=== PATIENT | male | born 1995 | race Caucasian/White ===

== ENCOUNTER 2016-05-04 21:19 | Emergency (ER) | payer SELFPAY ==
[~2016-05-04] VITALS: Ht 172.7 cm; Wt 148.0 kg
[~2016-05-04 21:19] MED LIST: CEPH-443 PO; HYDR-3498 PO
[2016-05-04 22:26] VITALS: Ht 172.7 cm; Wt 148.0 kg
[2016-05-05] MEDS ORDERED: CEPH-443 PO (09:38)
[2016-05-05] MEDS ORDERED: BACTDS PO (09:38)
[2016-05-05] MEDS ORDERED: ACET325T33 PO (09:38)
== END 2016-05-05 01:52 | disposition left against medical advice (07) ==
LOC: FTE 21:19
DX: Z53.21 Procedure and treatment not carried out due to patient leaving prior to being seen by health care provider (principal)

== ENCOUNTER 2016-05-05 08:52 | Emergency (ER) | payer BC ==
[~2016-05-05] VITALS: Wt 105.0 kg
[2016-05-05] MEDS ORDERED: CEPHALEXIN 500 MG CAP PO ONE (09:30)
[2016-05-05] MEDS ORDERED: TRIMETHOPRIM/SULFAMETHOX (DS) TAB PO ONE (09:30)
[2016-05-05] MEDS ORDERED: DIPHTH/TET/ACEL PERTUSS (ADULT) 0.5 ML VIAL IM* ONE (09:30)
[2016-05-05] MEDS ORDERED: LIDOCAINE 1% (MDV) 20 ML INJ SC ONE (09:30)
[2016-05-05] MEDS ORDERED: BACTDS PO (09:38)
[2016-05-05] MEDS ORDERED: ACET325T33 PO (09:38)
[2016-05-05] MEDS ORDERED: CEPH-443 PO (09:38)
--- NOTE | 2016-05-05 10:14 | ERD ---
ER Documentation Chief Complaint Date/Time DATE: 05/05/16 TIME: 10:11 Chief Complaint bialteral great toe wound and infection for the past few months HPI This is a 21-year-old male presenting to the emergency department complaining of bilateral great toe pain 10/08 for the past 3 months. Patient states that he has had numerous times it is going toenails and have been removed. He has not taken any medications for this. Denies any fevers ROS All systems reviewed and are negative except as per history of present illness. Medications Home Meds Active Scripts Acetaminophen* (Tylenol*) 325 Mg Tablet, 2 TAB PO Q6 Y for PAIN AND OR ELEVATED TEMP, #20 TAB Prov:MILY LE-C 05/05/16 Sulfamethoxazole-Trimethoprim* (Bactrim* DS) 800-160 Mg Tab, 1 TAB PO BID for 10 Days, TAB Prov:MILY LE-C 05/05/16 Cephalexin* (Keflex*) 500 Mg Capsule, 500 MG PO QID for 10 Days, CAP Prov:MILY LE-C 05/05/16 Hydrocodone Bit-Acetaminophen* (Corry*) 5-325 Mg Tab, 1 TAB PO Q6 Y for PAIN, # 7 TAB Prov:GALINA ROBERTS 05/27/15 Cephalexin* (Keflex*) 500 Mg Capsule, 500 MG PO QID for 5 Days, CAP Prov:GALINA ROBERTS 05/27/15 Allergies Allergies: Coded Allergies: No Known Allergy (Unverified , 05/27/15) PMhx/Soc History of Surgery: No Anesthesia Reaction: No Hx Neurological Disorder: No Hx Respiratory Disorders: No Hx Cardiac Disorders: No Hx Psychiatric Problems: No Hx Miscellaneous Medical Probl: No Hx Alcohol Use: No Hx Substance Use: No Hx Tobacco Use: No Physical Exam Vitals Vital Signs Date Time Temp Pulse Resp B/P Pulse Ox O2 Delivery O2 Flow Rate FiO2 05/05/16 08:57 98.7 87 21 140/80 98 Physical Exam General: WD/WN, in no apparent distress, non-toxic appearing HENT: NC/AT Eyes: Conjunctiva normal Neck: Supple Pulm: Clear to auscultation, normal labored breathing; no wheezing/rales/ rhonchi heard CV: Good capillary refill GI: Non-distended, no guarding Back: No masses Ext: No clubbing, cyanosis, or edema Neuro: Moves on all fours Skin: Bilateral medial and lateral ingrown toenails with erythema and evidence of paronychia Normal turgor, color, and temperature. No ulcerations or rashes noted. Psych: Normal mood Results 24 hrs Current Medications Medications (Trade) Dose Ordered Sig/Marquita Route PRN Reason Start Time Stop Time Status Last Admin Dose Admin Lidocaine (Xylocaine 1% (Mdv) 20 ml) 20 ml ONCE ONCE SC 05/05/16 09:30 3 09:31 DC Diphtheria/ Tetanus/Acell Pertussis (Adacel) 0.5 ml ONCE ONCE IM* 05/05/16 09:30 05/05/16 09:31 DC 05/05/16 09:23 Cephalexin (Keflex) 500 mg ONCE ONCE PO 05/05/16 09:30 05/05/16 09:31 DC 05/05/16 09:22 Trimethoprim/ Sulfamethoxazole (Bactrim (Ds)) 1 tab ONCE ONCE PO 05/05/16 09:30 05/05/16 09:31 DC 05/05/16 09:22 Procedures/MDM This is a 21-year-old male presenting to the emergency department with bilateral infected ingrown toenails which would need to be removed. I will low suspicion for osteomyelitis or bacteremia. In the ED patient received tetanus shot. He was prepared for nail removal. Prescription for Keflex and Bactrim was provided. His first dose was taken in the ED. PROCEDURE NOTE: consent was obtained. Region was cleansed with povidone-iodine solution. A standard digital block was preformed using approximately 6cc of lidocaine without epinephrine. A wait for 10 minutes was allowed for anesthetic to become effective. The region was cleansed again with povidone-iodine solution. A nail elevator was slid under the cuticle to separate the nail plate from the overlying proximal nail fold. The entire nail plate bilaterally was cut free using bandage scissors and gently pulled free with a hemostat. Xeroform gauze was then applied followed by bulky dry gauze dressing. The patient tolerated the procedure well without complications. Standard post- procedure care is explained and return precautions are given. DISPOSITION: hemodynamically stable and neurovascularly intact pre & post treatment. Prescriptions flexed Bactrim have been given. Instructions to return in two days for a wound check has been given, discussed to return sooner if condition worsens. Patient understood and agreed with this plan Departure Diagnosis: Primary Impression: Paronychia Additional Impressions: Ingrown toenail Cellulitis and abscess of foot Condition: Stable Patient Instructions: Cellulitis, Nail Avulsion, Complete, Nail Removal, Paronychia Additional Instructions: FOLLOW UP WITH YOUR PRIMARY CARE PHYSICIAN TOMORROW.Return to this facility if you are not improving as expected. Take all medicines as directed. Return to this facility if you are not improving as expected. MILY LE PA-C May 05, 2016 10:14
== END 2016-05-05 10:33 | disposition home or self-care (01) ==
LOC: FTE 08:52
DX: L03.032 Cellulitis of left toe (principal); L03.031 Cellulitis of right toe; L60.0 Ingrowing nail; L02.612 Cutaneous abscess of left foot; L02.611 Cutaneous abscess of right foot; Z23 Encounter for immunization
CPT/HCPCS: 11765; 90471; 90715; Z7502; Z7610